=== PATIENT | female | born 1985 | race Hispanic/Latino ===

== ENCOUNTER 2018-09-18 20:55 | Inpatient (IN) | payer BC, MEDICAID ==
[2018-09-18] MEDS ORDERED: XYLOCAINE 2% INFILTRATI ONE (23:16)
[2018-09-18] MEDS ORDERED: ZOFRAN IV PRN (23:16)
[2018-09-18] MEDS ORDERED: BRETHINE SUB-Q PRN (23:16)
[2018-09-18] MEDS ORDERED: BRETHINE IVP PRN (23:16)
[2018-09-18] MEDS ORDERED: CERVIDIL VG ONE (23:16)
[2018-09-18] MEDS ORDERED: MINERAL OIL PO PRN (23:16)
--- NOTE | 2018-09-18 23:24 | History and Physical Report ---
History of Present Illness Date of examination: 09/18/18 (per admitting RN) Date of admission: 09/18/18 20:55 Chief complaint: Scheduled IOL, postdates History of present illness: Menstrual History Regularity: regular Menses every: 28 days Duration: 5 LMP reliability: unknown LMP character: normal test type: urine test Date: 01/23/2018 BC at conception: none Planned ? no EDC Calculations EDC Confirmation: 09/11/2018 Past History : 2 Term Births: 0 Premature Births: 0 Living Children: 0 Para: 0 Mult. Births: 0 Prev : 0 Aborta: 1 Elect. Ab: 1 Past Medical History: Negative Past Medical History Past Surgical History: pins placed in hips - bilaterally, age 14 reomoved pins @ age 16 Past Medical History Surgery (Non-hide and skin colerer): pins placed in hips - bilaterally, age 14 reomoved pins @ age 16 Abnormal PAP: negative GENTRY Exposure: negative Infertility: negative Uterine Anomaly: negative Uterine Surgery (not C/S): negative Other Gynecologic Problems: negative Family Hx: father - of anurism Social Hx: single no ETOH/Drugs/Smoking Infection History Hx of STD: none HIV Risk Eval: no Hepatitis B Risk Eval: low risk Personal hx. of genital herpes: no Partner hx. of genital herpes: no Rash, Viral, or Febrile illness since last LMP? no Varicella/Chicken Pox Status: Previous Disease TB Risk: no Genetic History Congenital Heart Defect: Mom: no Dad: no Terese Disease: Mom: no Dad: no Thalassemia Mom: no Dad: no Neural Tube Defect Mom: no Dad: no Down's Syndrome Mom: no Dad: no Barron-Sachs Mom: no Dad: no Sickle Cell Disease/Trait Mom: no Dad: no Hemophilia Mom: no Dad: no Muscular Dystrophy Mom: no Dad: no Cystic Fibrosis Mom: no Dad: no Oliver Chorea Mom: no Dad: no Mental Retardation Mom: no Dad: no Fragile X Mom: no Dad: no Other Genetic/Chromosomal Disorder Mom: no Dad: no Child w/other defect Mom: no Dad: no Enviromental Exposures Xray Exposure: no Medication, drug, or alcohol use since LMP: no Chemical/Other Exposure: no Exposure to Cat Liter: no Hx of Parvovirus (Fifth Disease): no Occupational Exposure to Children: none Active Medications: None Current Allergies (reviewed today): No known allergies Past History Past Medical History: other (see hpi) Past Surgical History: other (see hpi) 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) Family/Genetic History: other (see hpi) Social history: other (see hpi) - Obstetrical History Expected Date of Delivery: 09/11/18 Actual Gestation: 41 Week(s) 0 Day(s) : 2 Para: 0 Hx # Term Pregnancies: 0 Number of Pregnancies: 0 Number of Living Children: 0 Medications and Allergies Allergies Allergy/AdvReac Type Severity Reaction Status Date / Time No Known Allergies Allergy Unverified 03/11/18 15:57 Home Medications Medication Instructions Recorded Confirmed Last Taken Type Acetaminophen [Tylenol Extra 500 mg PO Q6H PRN #20 tablet 03/11/18 Unknown Rx Strength] Review of Systems All systems: negative - Vital Signs Vital signs: Vital Signs Pulse BP 85 123/77 09/18/18 21:21 09/18/18 21:21 Temp Pulse Resp BP Pulse Ox 90 16 124/71 09/18/18 22:38 09/18/18 22:38 09/18/18 22:38 - Physical Exam Breasts: Positive: normal Cardiovascular: Regular rate, Normal S1, Normal S2 Lungs: Positive: Clear to auscultation, Normal air movement Abdomen: Positive: normal appearance, soft, normal bowel sounds. Negative: distention, tenderness Genitourinary (Female): Positive: normal external genitalia, normal perenium Vulva: both: normal Vagina: Positive: normal moisture. Negative: discharge Cervix: Negative: lesion, discharge Uterus: Positive: normal size, normal contour Adnexa: both: normal Anus/Rectum: Positive: normal perianal skin, heme negative. Negative: rectal mass, hemorrhoids Extremities: Positive: edema (1+ pitting edema bilat LE) Deep Tendon Reflex Grade: Normal +2 - Obstetrical FHR: auscultation normal, category 1 (per admitting RN) Results All other labs normal. Assessment and Plan 33 year old at 41w0d presents for scheduled IOL for postdates. Patient reports feeling well, no complaints. Per admitting RN, category 1 tracing at this time, no contractions, SVE 1/thick/high, vertex. VSSAF. Spoke with patient about induction process, reviewed potential for risks involved with suspected macrosomia such as shoulder dystocia, injuries, instrum ented/operative vaginal , 4th degree perineal laceration, hemorrhage as we discussed in office prior. EFW at 40 weeks was 8#11. Patient has been counseled by physician r/t risks and alternative options for deliver as well. Patient voices understanding and elects to proceed with induction and vaginal . Routine admission orders and cervidil orders input into EMR. Questions encouraged and answered. Patient encouraged to communicate with providers any concerns or desire for changes in POC throughout labor process. Will continue to monitor closely.
[2018-09-18] MEDS ORDERED: PITOCin/NS 20 UNIT/1000ML DRIP 20 UNITS/1,000 ML BAG IV SCH (23:45)
[2018-09-19] MEDS: LACTATED RINGERS 1,000 ML IV SCH ×3 (00:15→12:54)
[2018-09-19 00:18] LABS: Hematocrit 33.1 % (30.3-42.9); Hemoglobin 11.3 gm/dl (10.1-14.3); Mean Corpuscular HGB Conc 34 % (30-34); Mean Corpuscular Volume 86 fl (79-97); Platelet Count 260 K/mm3 (140-440); Red Blood Count 3.84 M/mm3 (3.65-5.03); Red Cell Distribution Width 14.2 % (13.2-15.2)
--- NOTE | 2018-09-19 07:40 | Event Note ---
Date: 09/19/18 Patient in bathroom
--- NOTE | 2018-09-19 07:42 | Progress Note ---
Assessment and Plan Pt returned to bed from toilet c/o ROM and worsening of ctx pain. SVE 3,90,-1 clear fluid Will bolus for epidural and start pitocin. ISE/IUPC placed Re-eval as needed Subjective - Subjective Date of service: 09/19/18 (pt c/o leaking fluid) Patient reports: loss of fluid, movement normal Objective - Vital Signs Vital Signs: Vital Signs - 12hr 09/18/18 09/18/18 21:21 22:38 Pulse Rate 85 90 Respiratory 16 Rate Blood Pressure 123/77 124/71 Blood Pressure 124/71 [Left] - Exam Breasts: deferred Cardiovascular: Regular rate Lungs: Normal air movement Abdomen: Present: normal appearance, soft. Absent: distention, tenderness Uterus: Present: normal FHR: auscultation normal, category 1 Uterine Contraction Monitor Mode: External Cervical Dilatation: 3 (cervidil removed) Cervical Effacement Percentage: 90 (clear fluid) station: -1 Uterine Contraction Pattern: Regular Uterine Tone Measurement Phase: Resting Uterine Contraction Intensity: Moderate Extremities: normal Deep Tendon Reflex Grade: Normal +2 - Labs Labs: Abnormal Labs 09/18/18 21:45 WBC 11.8 H Laboratory Results - last 24 hr 09/18/18 09/18/18 21:45 21:45 WBC 11.8 H RBC 3.84 Hgb 11.3 Hct 33.1 MCV 86 MCH 29 MCHC 34 RDW 14.2 Plt Count 260 Blood Type A POSITIVE Antibody Screen Negative
[2018-09-19] MEDS: PITOCin/NS 30 UNIT/500ML 30 UNITS/500 ML BAG IV SCH ×2 (08:34→14:35)
--- NOTE | 2018-09-19 08:52 | Anesthesia Day of Surgery ---
Anesthesia Day of Surgery - Day of Surgery Patient Examined: Yes Patient H&P Reviewed: Yes Patient is NPO: Yes Beta Blockers: No Cardiac Clearance: No Pulmonary Clearance: No Mike's Test: N/A
--- NOTE | 2018-09-19 08:52 | Anesthesia Consultation ---
Anesthesia Consult and Med Hx Date of service: 09/19/18 - Airway Anesthetic Teeth Evaluation: Chipped ROM Head & Neck: Adequate Mental/Hyoid Distance: Adequate Mallampati Class: Class III Intubation Access Assessment: Good - Pulmonary Exam CTA: Yes - Cardiac Exam Cardiac Exam: RRR - Pre-Operative Health Status ASA Pre-Surgery Classification: ASA3 Proposed Anesthetic Plan: Epidural - Pulmonary Hx Smoking: No Hx Asthma: No Hx Respiratory Symptoms: No SOB: No COPD: No Home Oxygen Therapy: No Hx Pneumonia: No Hx Sleep Apnea: No - Cardiovascular System Hx Hypertension: No Hx Coronary Artery Disease: No Hx Heart Attack/AMI: No Hx Angina: No Hx Percutaneous Transluminal Coronary Angioplasty (PTCA): No Hx Cardia Arrhythmia: No Hx Pacemaker: No Hx Internal Defibrillator: No Hx Valvular Heart Disease: No Hx Heart Murmur: No Hx Peripheral Vascular Disease: No - Central Nervous System Hx Neuromuscular Disorder: No Hx Seizures: No CVA: No Hx Back Pain: Yes Hx Psychiatric Problems: No - Gastrointestinal Hx Ulcer: No Hx Gastroesophageal Reflux Disease: Yes - Endocrine Hx Renal Disease: No Hx End Stage Renal Disease: No Hx Cirrhosis: No Hx Liver Disease: No Hx Insulin Dependent Diabetes: No Hx Non-Insulin Dependent Diabetes: No Hx Thyroid Disease: No Hx Hypothyroidism: No Hx Hyperthyroidism: No - Hematic Hx Anemia: Yes Hx Sickle Cell Disease: No - Other Systems Hx Alcohol Use: No Hx Substance Use: No Hx Cancer: No Hx Obesity: Yes
--- NOTE | 2018-09-19 08:53 | Post Anesthesia Evaluation ---
- Post Anesthesia Evaluation Patient Participated: Yes Airway Patent: Yes Stable Respiratory Function: Yes Nausea/Vomiting: No Temp > 96.8F: Yes Pain Manageable: Yes Adequeate Hydration: Yes Anesthesia Complications: No Block Receding Appropriately: Yes Patient on Ventilator: No
--- NOTE | 2018-09-19 09:13 | Event Note ---
Date: 09/19/18 Discussed possible shoulder dystocia. She was informed at this gestational age it would be difficult to accurately determine adequacy of her pelvis as well as weight. Explained there could be a 1-2# discrepancy in the estimated weight with ultrasound. Complications associated with shoulder dystocia were extensively explained: Permanent or temporary injury to the infant's extremities, permanent brain damage, or . She was also informed she may require an incision on or a laceration may occur involving her vagina and or perineum the median involve the rectum involves the rectum. The incision may be performed order to facilitate delivery of the . This incision/laceration may lead to future complications with painful intercourse, fistula or fecal incontinence or other complications. Risks associated with delivery were discussed: Bleeding that may require blood transfusion and its complications or hysterectomy, infection that may also require hysterectomy and may be fatal, injury to her bowel may require temporary or permanent colostomy, injury to her bladder. She was also informed that once she's had a delivery she may require subsequent delivery with all future pregnancies. Questions were encouraged and answered. Patient voiced understanding and she desires to proceed with YAHIR Cat 1 fht's. She sitting for epidural now.
[2018-09-19] MEDS ORDERED: fentaNYL-BUPIV 2 MCG/ML-0.125% 200 MCG/100 ML BAG EPIDURAL SCH (09:30)
[2018-09-19] MEDS ORDERED: NARCAN 2 MG/2 ML IV PRN (09:30)
--- NOTE | 2018-09-19 09:47 | Progress Note ---
Assessment and Plan - Patient Problems (1) 41 weeks gestation of Current Visit: Yes Status: Acute (2) BMI 35.0-35.9,adult Current Visit: Yes Status: Acute Subjective - Subjective Date of service: 09/19/18 Patient reports: loss of fluid, movement normal Objective - Vital Signs Vital Signs: Vital Signs - 12hr 09/18/18 09/19/18 09/19/18 22:38 07:54 07:56 Temperature 97.8 F Pulse Rate 90 100 H Respiratory 16 Rate Blood Pressure 124/71 134/80 Blood Pressure 124/71 [Left] O2 Sat by Pulse Oximetry 09/19/18 09/19/18 09/19/18 08:29 08:59 09:18 Temperature Pulse Rate 90 87 91 H Respiratory Rate Blood Pressure 138/65 141/79 133/73 Blood Pressure [Left] O2 Sat by Pulse Oximetry 09/19/18 09/19/18 09/19/18 09:20 09:22 09:24 Temperature Pulse Rate 98 H 93 H 93 H Respiratory Rate Blood Pressure 141/77 131/69 120/71 Blood Pressure [Left] O2 Sat by Pulse Oximetry 09/19/18 09/19/18 09/19/18 09:26 09:28 09:32 Temperature Pulse Rate 76 90 88 Respiratory Rate Blood Pressure 109/70 114/65 Blood Pressure [Left] O2 Sat by Pulse 96 95 Oximetry 09/19/18 09/19/18 09/19/18 09:33 09:34 09:36 Temperature Pulse Rate 89 89 81 Respiratory Rate Blood Pressure 127/65 119/61 116/61 Blood Pressure [Left] O2 Sat by Pulse Oximetry 09/19/18 09/19/18 09/19/18 09:37 09:38 09:40 Temperature Pulse Rate 91 H 88 94 H Respiratory Rate Blood Pressure 117/62 118/63 Blood Pressure [Left] O2 Sat by Pulse 98 Oximetry 09/19/18 09:42 Temperature Pulse Rate 85 Respiratory Rate Blood Pressure Blood Pressure [Left] O2 Sat by Pulse 97 Oximetry - Exam Vulva: both: normal Uterus: Present: fundal height above umbilicus FHR: category 1 Cervical Dilatation: 4 Cervical Effacement Percentage: 60 (IUPC was in vagina, it was removed and another one was placed without difficulty) station: -1 Uterine Contraction Frequency (min): 2, Uterine Contraction Pattern: Regular - Labs Labs: Abnormal Labs 09/18/18 21:45 WBC 11.8 H Laboratory Results - last 24 hr 09/18/18 09/18/18 21:45 21:45 WBC 11.8 H RBC 3.84 Hgb 11.3 Hct 33.1 MCV 86 MCH 29 MCHC 34 RDW 14.2 Plt Count 260 Blood Type A POSITIVE Antibody Screen Negative
--- NOTE | 2018-09-19 11:54 | Progress Note ---
Assessment and Plan pt doing well No c/o voiced SVE 8,100,-1 Pit on 6mu Close monitoring Subjective - Subjective Date of service: 09/19/18 (pt happy with epidural) Principal diagnosis: IUP @ 41 weeks IOL Patient reports: loss of fluid, movement normal Objective - Vital Signs Vital Signs: Vital Signs - 12hr 09/19/18 09/19/18 09/19/18 07:54 07:56 08:29 Temperature 97.8 F Pulse Rate 100 H 90 Blood Pressure 134/80 138/65 O2 Sat by Pulse Oximetry 09/19/18 09/19/18 09/19/18 08:59 09:18 09:20 Temperature Pulse Rate 87 91 H 98 H Blood Pressure 141/79 133/73 141/77 O2 Sat by Pulse Oximetry 09/19/18 09/19/18 09/19/18 09:22 09:24 09:26 Temperature Pulse Rate 93 H 93 H 76 Blood Pressure 131/69 120/71 109/70 O2 Sat by Pulse 96 Oximetry 09/19/18 09/19/18 09/19/18 09:28 09:32 09:33 Temperature Pulse Rate 90 88 89 Blood Pressure 114/65 127/65 O2 Sat by Pulse 95 Oximetry 09/19/18 09/19/18 09/19/18 09:34 09:36 09:37 Temperature Pulse Rate 89 81 91 H Blood Pressure 119/61 116/61 O2 Sat by Pulse 98 Oximetry 09/19/18 09/19/18 09/19/18 09:38 09:40 09:42 Temperature Pulse Rate 88 94 H 85 Blood Pressure 117/62 118/63 O2 Sat by Pulse 97 Oximetry 09/19/18 09/19/18 09/19/18 09:47 09:52 09:56 Temperature Pulse Rate 89 87 92 H Blood Pressure 123/72 O2 Sat by Pulse 98 97 Oximetry 09/19/18 09/19/18 09/19/18 09:57 10:02 10:07 Temperature Pulse Rate 106 H 97 H 79 Blood Pressure 160/90 O2 Sat by Pulse 97 97 98 Oximetry 09/19/18 09/19/18 09/19/18 10:11 10:12 10:17 Temperature Pulse Rate 81 81 85 Blood Pressure 126/64 O2 Sat by Pulse 98 98 Oximetry 09/19/18 09/19/18 09/19/18 10:22 10:26 10:27 Temperature Pulse Rate 84 81 83 Blood Pressure 125/65 O2 Sat by Pulse 97 97 Oximetry 09/19/18 09/19/18 09/19/18 10:32 10:37 10:41 Temperature Pulse Rate 83 87 82 Blood Pressure 115/58 O2 Sat by Pulse 97 97 Oximetry 09/19/18 09/19/18 09/19/18 10:42 10:47 10:52 Temperature Pulse Rate 84 87 109 H Blood Pressure O2 Sat by Pulse 97 97 96 Oximetry 09/19/18 09/19/18 09/19/18 10:57 11:02 11:07 Temperature Pulse Rate 93 H 95 H 84 Blood Pressure 131/68 O2 Sat by Pulse 97 97 97 Oximetry 09/19/18 09/19/18 09/19/18 11:11 11:12 11:17 Temperature Pulse Rate 88 98 H 96 H Blood Pressure 134/74 O2 Sat by Pulse 97 97 Oximetry 09/19/18 09/19/18 09/19/18 11:22 11:27 11:32 Temperature Pulse Rate 77 76 109 H Blood Pressure 121/62 O2 Sat by Pulse 97 97 97 Oximetry 09/19/18 09/19/18 09/19/18 11:37 11:41 11:42 Temperature Pulse Rate 92 H 92 H 81 Blood Pressure 111/56 O2 Sat by Pulse 100 100 Oximetry 09/19/18 11:47 Temperature Pulse Rate 91 H Blood Pressure O2 Sat by Pulse 100 Oximetry - Exam Breasts: deferred Cardiovascular: Regular rate Lungs: Normal air movement Abdomen: Present: normal appearance, soft, normal bowel sounds. Absent: distention, tenderness Uterus: Present: normal FHR: auscultation normal, category 1 Uterine Contraction Monitor Mode: Internal Cervical Dilatation: 8 (bloody show) Cervical Effacement Percentage: 100 station: -1 Uterine Contraction Pattern: Regular Uterine Tone Measurement Phase: Resting Uterine Contraction Intensity: Moderate Extremities: normal Deep Tendon Reflex Grade: Normal +2 - Labs Labs: Abnormal Labs 09/18/18 21:45 WBC 11.8 H Laboratory Results - last 24 hr 09/18/18 09/18/18 21:45 21:45 WBC 11.8 H RBC 3.84 Hgb 11.3 Hct 33.1 MCV 86 MCH 29 MCHC 34 RDW 14.2 Plt Count 260 Blood Type A POSITIVE Antibody Screen Negative
--- NOTE | 2018-09-19 13:17 | Progress Note ---
Assessment and Plan pt w/o complaint of ctx pain. FHR 120-130 Just prior to my arrival in room pt had a prolong decel to 80 Pt was vomiting 8,80,-2 with caput. Bloody show continues. Pitocin off. Discussed section with pt due to arrest of dilatation and descent of head. Risks of bleeding, organ damage, need for c/s with future pregnancies. notified of pt situation. Subjective - Subjective Date of service: 09/19/18 (no cervical chg X 2 hours) Principal diagnosis: IUP @ 41 weeks IOL Patient reports: loss of fluid, movement normal Objective - Vital Signs Vital Signs: Vital Signs - 12hr 09/19/18 09/19/18 09/19/18 07:54 07:56 08:29 Temperature 97.8 F Pulse Rate 100 H 90 Blood Pressure 134/80 138/65 O2 Sat by Pulse Oximetry 09/19/18 09/19/18 09/19/18 08:59 09:18 09:20 Temperature Pulse Rate 87 91 H 98 H Blood Pressure 141/79 133/73 141/77 O2 Sat by Pulse Oximetry 09/19/18 09/19/18 09/19/18 09:22 09:24 09:26 Temperature Pulse Rate 93 H 93 H 76 Blood Pressure 131/69 120/71 109/70 O2 Sat by Pulse 96 Oximetry 09/19/18 09/19/18 09/19/18 09:28 09:32 09:33 Temperature Pulse Rate 90 88 89 Blood Pressure 114/65 127/65 O2 Sat by Pulse 95 Oximetry 09/19/18 09/19/18 09/19/18 09:34 09:36 09:37 Temperature Pulse Rate 89 81 91 H Blood Pressure 119/61 116/61 O2 Sat by Pulse 98 Oximetry 09/19/18 09/19/18 09/19/18 09:38 09:40 09:42 Temperature Pulse Rate 88 94 H 85 Blood Pressure 117/62 118/63 O2 Sat by Pulse 97 Oximetry 09/19/18 09/19/18 09/19/18 09:47 09:52 09:56 Temperature Pulse Rate 89 87 92 H Blood Pressure 123/72 O2 Sat by Pulse 98 97 Oximetry 09/19/18 09/19/18 09/19/18 09:57 10:02 10:07 Temperature Pulse Rate 106 H 97 H 79 Blood Pressure 160/90 O2 Sat by Pulse 97 97 98 Oximetry 09/19/18 09/19/18 09/19/18 10:11 10:12 10:17 Temperature Pulse Rate 81 81 85 Blood Pressure 126/64 O2 Sat by Pulse 98 98 Oximetry 09/19/18 09/19/18 09/19/18 10:22 10:26 10:27 Temperature Pulse Rate 84 81 83 Blood Pressure 125/65 O2 Sat by Pulse 97 97 Oximetry 09/19/18 09/19/18 09/19/18 10:32 10:37 10:41 Temperature Pulse Rate 83 87 82 Blood Pressure 115/58 O2 Sat by Pulse 97 97 Oximetry 09/19/18 09/19/18 09/19/18 10:42 10:47 10:52 Temperature Pulse Rate 84 87 109 H Blood Pressure O2 Sat by Pulse 97 97 96 Oximetry 09/19/18 09/19/18 09/19/18 10:57 11:02 11:07 Temperature Pulse Rate 93 H 95 H 84 Blood Pressure 131/68 O2 Sat by Pulse 97 97 97 Oximetry 09/19/18 09/19/18 09/19/18 11:11 11:12 11:17 Temperature Pulse Rate 88 98 H 96 H Blood Pressure 134/74 O2 Sat by Pulse 97 97 Oximetry 09/19/18 09/19/18 09/19/18 11:22 11:27 11:32 Temperature Pulse Rate 77 76 109 H Blood Pressure 121/62 O2 Sat by Pulse 97 97 97 Oximetry 09/19/18 09/19/18 09/19/18 11:37 11:41 11:42 Temperature Pulse Rate 92 H 92 H 81 Blood Pressure 111/56 O2 Sat by Pulse 100 100 Oximetry 09/19/18 09/19/18 09/19/18 11:47 11:52 11:57 Temperature Pulse Rate 91 H 102 H 107 H Blood Pressure O2 Sat by Pulse 100 99 99 Oximetry 09/19/18 09/19/18 09/19/18 12:02 12:07 12:11 Temperature Pulse Rate 100 H 80 83 Blood Pressure 127/63 O2 Sat by Pulse 98 99 Oximetry 09/19/18 09/19/18 09/19/18 12:12 12:17 12:22 Temperature Pulse Rate 115 H 79 86 Blood Pressure O2 Sat by Pulse 99 99 98 Oximetry 09/19/18 09/19/18 09/19/18 12:26 12:27 12:32 Temperature Pulse Rate 88 89 83 Blood Pressure 126/63 125/61 O2 Sat by Pulse 98 98 Oximetry 09/19/18 09/19/18 09/19/18 12:37 12:42 12:47 Temperature Pulse Rate 125 H 103 H 91 H Blood Pressure 148/82 O2 Sat by Pulse 99 98 98 Oximetry 09/19/18 09/19/18 09/19/18 12:52 12:56 12:57 Temperature Pulse Rate 95 H 86 90 Blood Pressure 119/62 O2 Sat by Pulse 96 97 Oximetry 09/19/18 09/19/18 13:02 13:07 Temperature Pulse Rate 100 H 97 H Blood Pressure O2 Sat by Pulse 97 97 Oximetry - Exam Breasts: deferred Cardiovascular: Regular rate Lungs: Normal air movement Abdomen: Present: normal appearance, soft. Absent: distention, tenderness Uterus: Present: normal FHR: auscultation normal, category 2 (deep variable resolved with position chg) Uterine Contraction Monitor Mode: Internal Cervical Dilatation: 8 (caput @ 0) Cervical Effacement Percentage: 80 station: -2 Uterine Contraction Pattern: Regular Uterine Tone Measurement Phase: Resting Uterine Contraction Intensity: Moderate Extremities: normal Deep Tendon Reflex Grade: Normal +2 - Labs Labs: Abnormal Labs 09/18/18 21:45 WBC 11.8 H Laboratory Results - last 24 hr 09/18/18 09/18/18 09/18/18 21:45 21:45 21:45 WBC 11.8 H RBC 3.84 Hgb 11.3 Hct 33.1 MCV 86 MCH 29 MCHC 34 RDW 14.2 Plt Count 260 RPR Nonreactive Blood Type A POSITIVE Antibody Screen Negative
--- NOTE | 2018-09-19 14:19 | Event Note ---
Date: 09/19/18 Patient resting in bed, no complaints. cx: /0; irreg UC (pitocin off by CNM d/t possible c/s). Cat 1 fht's. Options reviewed, including but not limited to, continue YAHIR w/ risks for infection, shoulder dystocia vs c/s delivery with risks for bleeding, infection,injury to bowel/ bladder. Family present during discussion, questions encouraged and answered. Per RN patient desires to have pitoicn restarted to attempt vaginal delivery.
--- NOTE | 2018-09-19 14:33 | Event Note ---
Date: 09/19/18 Again discussed shoulder dystocia and risks of injury, she voiced understanding and desires YAHIR
[2018-09-19] MEDS ORDERED: BICITRA PO ONE (16:44)
[2018-09-19] MEDS ORDERED: REGLAN ONE (16:46)
--- NOTE | 2018-09-19 16:46 | Event Note ---
Date: 09/19/18 No cervical change x 5 hours. Options discussed again , she now desires to proceed with c/s. Consent reviewed and signed
[2018-09-19] MEDS ORDERED: ANCEF/STERILE WATER 2 GM/20 ML 2 GM/20 ML SYRINGE IV NR (17:00)
[2018-09-19] MEDS ORDERED: LACTATED RINGERS 1,000 ML IV SCH (17:00)
[2018-09-19] MEDS ORDERED: PITOCin/NS 20 UNIT/1000ML DRIP 20 UNITS/1,000 ML BAG IV SCH ×2 (17:00→20:20)
[2018-09-19] MEDS ORDERED: MARCAINE 0.5% INFILTRATI ONE (17:12)
[2018-09-19] MEDS ORDERED: SUBLIMAZE ONE ×2 (17:22→18:21)
[2018-09-19] MEDS ORDERED: REGLAN IV ONE (18:00)
[2018-09-19] MEDS ORDERED: PEPCID IV ONE (18:00)
[2018-09-19] MEDS ORDERED: CYTOTEC PR ONE (18:06)
[2018-09-19] MEDS ORDERED: HEMABATE IM ONE (18:06)
[2018-09-19] MEDS ORDERED: METHERGINE IM ONE (18:06)
[2018-09-19] MEDS ORDERED: NEO SYNEPHRINE/NS Syringe(OR USE) IV ONE (18:07)
[2018-09-19] MEDS ORDERED: XYLOCAINE MPF 2% ONE (18:07)
[2018-09-19] MEDS ORDERED: TORADOL ONE (18:31)
[2018-09-19] MEDS ORDERED: VERSED ONE ×2 (18:40→18:41)
--- NOTE | 2018-09-19 19:14 | Operative Report ---
Operative Report Operative Report: Date: 09/19/2018 Preoperative diagnosis: 1. Intrauterine at 41 weeks 2. Body mass index 35 3. Failure to dilate Postoperative diagnosis: 1. Intrauterine at 41 weeks 2. Body mass index 35 3. Failure to dilate Procedure: Low uterine transverse incision for delivery Surgeon: Brittany Juarez MD Case Finishing Machine Adjuster: More Lynn CST Anesthesia: CSE Anesthesiologist: Zev Hollins Estimated blood loss: 600 mL Urine out: 150 mL Findings: Live born male infant. Weight 8 lbs. 4 oz. Apgars 8 at 1 minute and 9 at 5 minutes. Uterus grossly normal, tubes grossly normal, ovaries grossly normal. Procedure: After risk, benefits, complications, consequences and alternatives for this procedure were discussed with patient and consents were reviewed and signed, she was taken to the OR where CSE anesthesia was bolused. She was then placed in the left lateral tilt position, and prepped and draped in the usual sterile fashion. Timeout was performed, and an appropriate level of anesthesia was noted, a Pfannenstiel incision was made and extended to the fascia which was incised and extended in the lateral directions. The overlying fascia was sharply dissected away from the underlying rectus muscles in the superior and inferior directions. The midline was entered bluntly. The vesicouterine fold was incised and with blunt dissection the bladder flap was created. A transverse incision was made in the lower uterine segment and extended in superiolateral direction with finger fractionation. Clear fluid was noted. The was delivered from cephalic position. Mouth and nose were bulb suctioned. Spontaneous cry and excellent tone were noted. Cord was doubly clamped and cut. The was given to /resuscitation team present. The placenta was manually extracted. The uterus was then exteriorized and cleared of any further products of conception or placental tissue. The incision was reapproximated using 0 Vicryl in a running interlocking stitch. Grossly normal uterus, tubes and ovaries were noted. An additional stitch of 0 Vicryl was placed in imbricating fashion. Once hemostasis was noted, the uterus was allowed back into the pelvic cavity. The pelvis was irrigated with warm normal saline. Again hemostasis was noted . Interceed was then placed to prevent adhesions. Then attention was turned to the rectus muscles. The rectus muscles reapproximated using 0 Vicryl in a simple interrupted stitch x 3. Once hemostasis was noted, the fascia was reapproximated using 0 Vicryl running stitch fashion. Once hemostasis was noted skin incision was reapproximated using 4-0 Vicryl on a Jayy needle in a subcuticular manner. Counts were correct 3. Patient tolerated procedure well state recovery room in stable condition.
[2018-09-19] MEDS ORDERED: ZOFRAN IV PRN ×2 (19:25→20:20)
[2018-09-19] MEDS ORDERED: PHENERGAN PR PRN (19:25)
[2018-09-19] MEDS ORDERED: DILAUDID IV PRN ×2 (19:25)
[2018-09-19] MEDS ORDERED: NARCAN 0.4 MG/1 ML IV PRN ×2 (19:25→20:20)
[2018-09-19] MEDS ORDERED: BENADRYL IV PRN (19:25)
[2018-09-19] MEDS ORDERED: PHENERGAN PO PRN (19:25)
[2018-09-19] MEDS ORDERED: SODIUM CHLORIDE FLUSH SYRINGE 10 ML IV SCH ×2 (20:00→20:20)
[2018-09-19] MEDS ORDERED: MILK OF MAGNESIA PO PRN (20:20)
[2018-09-19] MEDS ORDERED: MORPHINE IV PRN ×2 (20:20)
[2018-09-19] MEDS ORDERED: MYLICON PO PRN (20:20)
[2018-09-19] MEDS ORDERED: LANSINOH TP PRN (20:20)
[2018-09-19] MEDS ORDERED: TYLENOL PO PRN (20:20)
[2018-09-19] MEDS ORDERED: TUCKS PAD TP PRN (20:20)
[2018-09-19] MEDS: TORADOL IV SCH (21:09)
[2018-09-19] MEDS ORDERED: D5LR 1,000 ML IV SCH (21:20)
[2018-09-20] MEDS: ANCEF/NS 1 GM/50 ML 1 GM/50 ML BAG IV SCH ×2 (00:15→08:05)
[2018-09-20] MEDS: TORADOL IV SCH ×3 (03:20→17:30)
[2018-09-20] MEDS ORDERED: BOOSTRIX IM ONE (06:00)
[2018-09-20 07:34] LABS: Hematocrit 28.2 % (30.3-42.9); Hemoglobin 9.3 gm/dl (10.1-14.3)
--- NOTE | 2018-09-20 08:17 | Progress Note ---
Assessment and Plan POD1 Patient reports feeling well, denies any complaints or needs at this time. Fundus is firm, ML, U/1. Vaginal bleeding is scant, patient denies any heavy bleeding or clots. Abdominal incision is dressed, clean, dry, intact. Instructed patient to shower today, remove dressing afterwards. Patient reports pain is well controlled with medications. Reports breast feeding is going well, supplementing with formula as needed. Encouraged increase in water intake, continued ambulation and use of IS. VSSAF. Reviewed post delivery labs with angel mo, iron and colace ordered, patient aware. She denies any dizziness or feeling faint with ambulation or position changes. Continue post op pathway. Subjective - Subjective Date of service: 09/20/18 Principal diagnosis: POD 1 s/p primary c/s Interval history: Menstrual History Regularity: regular Menses every: 28 days Duration: 5 LMP reliability: unknown LMP character: normal test type: urine test Date: 01/23/2018 BC at conception: none Planned ? no EDC Calculations EDC Confirmation: 09/11/2018 Past History : 2 Term Births: 0 Premature Births: 0 Living Children: 0 Para: 0 Mult. Births: 0 Prev : 0 Aborta: 1 Elect. 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 of genital herpes: no Partner hx. of genital herpes: no Rash, Viral, or Febrile illness since last LMP? no Varicella/Chicken Pox Status: Previous Disease TB Risk: no Genetic History Congenital Heart Defect: Mom: no Dad: no Terese Disease: Mom: no Dad: no Thalassemia Mom: no Dad: no Neural Tube Defect Mom: no Dad: no Down's Syndrome Mom: no Dad: no Barron-Sachs Mom: no Dad: no Sickle Cell Disease/Trait Mom: no Dad: no Hemophilia Mom: no Dad: no Muscular Dystrophy Mom: no Dad: no Cystic Fibrosis Mom: no Dad: no Fenton Chorea Mom: no Dad: no Mental Retardation Mom: no Dad: no Fragile X Mom: no Dad: no Other Genetic/Chromosomal Disorder Mom: no Dad: no Child w/other defect Mom: no Dad: no Enviromental Exposures Xray Exposure: no Medication, drug, or alcohol use since LMP: no Chemical/Other Exposure: no Exposure to Cat Liter: no Hx of Parvovirus (Fifth Disease): no Occupational Exposure to Children: none Active Medications: None Current Allergies (reviewed today): No known allergies Patient reports: appetite normal, voiding normally, pain well controlled, flatus, ambulating normally [place]: doing well Objective - Vital Signs Latest vital signs: Vital Signs Temp Pulse Resp BP Pulse Ox 09/20/18 05:28 97.8 F 81 20 111/69 95 09/19/18 20:40 98.2 F 87 20 117/76 95 09/19/18 20:14 98.7 F 88 16 116/60 95 09/19/18 19:50 84 14 116/63 96 09/19/18 19:35 89 14 111/56 96 09/19/18 19:19 87 15 109/55 95 09/19/18 19:05 79 15 113/59 95 09/19/18 19:00 79 15 113/59 95 09/19/18 18:55 98.6 F 93 H 16 103/56 09/19/18 17:44 95 H 97 09/19/18 17:40 108 H 133/71 09/19/18 17:39 106 H 97 09/19/18 17:02 107 H 99 09/19/18 16:57 114 H 99 09/19/18 16:52 91 H 98 09/19/18 16:47 100 H 99 09/19/18 16:42 112 H 97 09/19/18 16:41 92 H 125/77 09/19/18 16:37 99 H 98 09/19/18 16:32 83 98 09/19/18 16:27 85 125/71 98 09/19/18 16:22 91 H 98 09/19/18 16:17 89 98 09/19/18 16:12 80 123/67 97 09/19/18 16:07 76 97 05 16:02 98 H 98 05 15:57 76 98 05 15:56 83 125/67 05 15:52 82 97 05 15:47 87 97 05 15:42 83 110/65 97 05 15:37 92 H 97 05 15:32 99 H 96 05 15:27 94 H 97 05 15:26 96 H 111/59 05 15:22 93 H 97 05 15:17 99 H 97 05 15:12 89 114/55 95 05 15:07 92 H 97 05 15:02 95 H 96 05 14:57 89 97 09/19/18 14:56 95 H 101/52 05 14:52 88 97 05 14:47 92 H 97 05 14:42 101 H 98 05 14:41 110 H 115/57 94 05 14:37 92 H 96 09/19/18 14:32 94 H 97 05 14:27 99 H 97 05 14:26 114 H 117/62 05 14:22 146 H 96 09/19/18 14:17 88 97 09/19/18 14:12 93 H 98 09/19/18 14:11 96 H 118/63 05 14:07 103 H 98 05 14:02 93 H 97 05 13:57 90 117/61 96 05 13:52 92 H 97 09/19/18 13:50 97.9 F 05 13:47 102 H 98 05 13:42 89 118/64 98 05 13:37 89 98 05 13:32 79 98 05 13:27 84 125/72 97 05 13:22 92 H 97 05 13:17 81 97 05 13:12 86 98 05 13:11 86 121/67 05 13:07 97 H 97 05 13:02 100 H 97 05/ 12:57 90 97 05 12:56 86 119/62 05 12:52 95 H 96 05 12:47 91 H 98 05 12:42 103 H 148/82 98 05 12:37 125 H 99 05 12:32 83 98 05 12:27 89 125/61 98 0519 12:26 88 126/63 05/ 12:22 86 98 05 12:17 79 99 05 12:12 115 H 99 05 12:11 83 127/63 05/ 12:07 80 99 05 12:02 100 H 98 05 11:57 107 H 99 05 11:52 102 H 99 05 11:47 91 H 100 05 11:42 81 100 05 11:41 92 H 111/56 05 11:37 92 H 100 05 11:32 109 H 97 05 11:27 76 121/62 97 05/ 11:22 77 97 05 11:17 96 H 97 05 11:12 98 H 97 05 11:11 88 134/74 05 11:07 84 97 05 11:02 95 H 97 05 10:57 93 H 131/68 97 05 10:52 109 H 96 05 10:47 87 97 05/19 10:42 84 97 05/ 10:41 82 115/58 05/ 10:37 87 97 05/ 10:32 83 97 05/ 10:27 83 97 05/19 10:26 81 125/65 05//19 10:22 84 97 05//19 10:17 85 98 05// 10:12 81 98 05//19 10:11 81 126/64 05// 10:07 79 98 05 10:02 97 H 160/90 97 05// 09:57 106 H 97 09/19/18 09:56 92 H 123/72 09/19/18 09:52 87 97 09/19/18 09:47 89 98 09/19/18 09:42 85 97 09/19/18 09:40 94 H 118/63 09/19/18 09:38 88 117/62 09/19/18 09:37 91 H 98 09/19/18 09:36 81 116/61 09/19/18 09:34 89 119/61 09/19/18 09:33 89 127/65 09/19/18 09:32 88 95 09/19/18 09:28 90 114/65 09/19/18 09:26 76 109/70 96 09/19/18 09:24 93 H 120/71 09/19/18 09:22 93 H 131/69 09/19/18 09:20 98 H 141/77 09/19/18 09:18 91 H 133/73 09/19/18 08:59 87 141/79 09/19/18 08:29 90 138/65 Intake and Output 09/19/18 09/20/18 09/20/18 23:59 07:59 15:59 Intake Total 1700 240 Output Total 950 1000 Balance 750 -760 Intake: IV 1700 Oral 240 Output: Urine 950 1000 Indwelling Catheter 600 1000 Other: Total, Intake Amount 240 Total, Output Amount 600 1000 Estimated Blood Loss 600 - Exam Breasts: Present: normal Cardiovascular: Present: Regular rate, Normal S1 Lungs: Present: Clear to auscultation Abdomen: Present: normal appearance, soft, normal bowel sounds Vulva: both: normal Uterus: Present: normal, firm Extremities: Present: normal Deep Tendon Reflex Grade: Normal +2 Incision: Present: dressed (C/D/I) - Labs Labs: Abnormal lab results 09/20/18 Range/Units 06:50 Hgb 9.3 L (10.1-14.3) gm/dl Hct 28.2 L (30.3-42.9) %
[2018-09-20] MEDS: COLACE PO SCH ×2 (10:44→21:17)
[2018-09-20] MEDS: FEOSOL PO SCH ×2 (10:44→21:16)
[2018-09-20] MEDS ORDERED: TORADOL IV SCH (17:30)
[2018-09-20] MEDS ORDERED: PERCOCET 5/325 PO PRN (18:51)
[2018-09-20] MEDS: IBUPROFEN PO PRN (21:17)
[2018-09-21] MEDS: IBUPROFEN PO PRN ×4 (03:20→23:39)
[2018-09-21] MEDS ORDERED: BOOSTRIX IM ONE (06:00)
[2018-09-21] MEDS: COLACE PO SCH ×2 (09:36→21:34)
[2018-09-21] MEDS: FEOSOL PO SCH ×2 (09:36→21:34)
--- NOTE | 2018-09-21 15:14 | Discharge Summary ---
Providers - Providers Date of Admission: 09/18/18 20:55 Date of discharge: 09/21/18 Attending physician: CAM KELLOGG 09/19/18 20:20 Consult to Psychotherapist [CONS] Routine Reason For Exam: Primary care physician: CAM KELLOGG Hospitalization Reason for admission: other (IOL) Delivery: Procedure: section Procedure details: see op note Incision: normal, dry, intact (steristrips in place and open to air) complications: none Discharge diagnosis: IUP at term delivered [place] baby: male Hospital course: pt admitted for IOL and had c/s due to failure to progress. Post op/pp course has note been complicated. Pt desires d/c home today on POD#2. Pt will f/u in the office in one week for post op incision check and within 2 wks for circumcision for the baby. Condition at discharge: Good Disposition: DC-01 TO HOME OR SELFCARE - Discharge Diagnoses (1) S/P primary low transverse Status: Acute Plan - Discharge Medications Prescriptions: Docusate Sodium [Colace] 100 mg PO BID PRN #60 capsule PRN Reason: Constipation Lidocain2.5%/Prilocai2.5% [Emla] 5 gm TP ONCE #1 tube Ferrous Sulfate [Feosol 325 MG tab] 325 mg PO BID #60 tablet Ibuprofen [Motrin 800 MG tab] 800 mg PO TID PRN #30 tablet PRN Reason: Pain oxyCODONE /ACETAMINOPHEN [Percocet 5/325 mg] 1 - 2 tab PO Q4HR PRN #20 tablet PRN Reason: Pain - Provider Discharge Summary Activity: routine, no sex for 6 weeks, no heavy lifting 4 weeks Diet: routine Instructions: routine Additional instructions: [] Smoking cessation referral if applicable(refer to patient education folder for contact #) [] Refer to [facility] Booklet Call your doctor immediately for: * Fever > 100.5 * Heavy vaginal bleeding ( >1 pad per hour) * Severe persistent headache * Shortness of breath * Reddened, hot, painful area to leg or breast * Drainage or odor from incision. * Keep incision clean and dry at all times and follow doctor's instructions regarding bathing/showering - Follow up plan Follow up: CAM KELLOGG MD [Primary Care Provider] - 7 Days
[2018-09-22] MEDS: IBUPROFEN PO PRN (09:18)
[2018-09-22] MEDS: FEOSOL PO SCH (09:20)
[2018-09-22] MEDS: COLACE PO SCH (09:20)
[2018-09-22 09:32] VITALS: BP 104/65
== END 2018-09-22 11:12 | disposition home or self-care (01) | DRG 787 ==
LOC: LD 20:55 → APU 09-19 18:01 → OB 09-19 20:29
PROVIDERS: ADMIT Obstetrics & Gynecology; ATTEND Obstetrics & Gynecology
PROC: 10D00Z1 Extraction of Products of Conception, Low, Open Approach (ICD-10-PCS; principal; 2018-09-19)
PROC: 10H07YZ Insertion of Other Device into Products of Conception, Via Natural or Artificial Opening (ICD-10-PCS; 2018-09-19)
DX: O99.62 Diseases of the digestive system complicating childbirth (principal); D62 Acute posthemorrhagic anemia; O48.0 Post-term pregnancy; O62.0 Primary inadequate contractions; O61.9 Failed induction of labor, unspecified; K21.9 Gastro-esophageal reflux disease without esophagitis; O99.214 Obesity complicating childbirth; E66.9 Obesity, unspecified; Z3A.41 41 weeks gestation of pregnancy; Z37.0 Single live birth; O90.81 Anemia of the puerperium
CPT/HCPCS: 36415; 85014; 85018; 85027; 86592; 86850; 86900; 86901; 90471; 90715; G0378; A6250; C1765; J0690; J1885; J2210; J2250; J2270; J2370; J2405; J2590; J2765; J3010; J7120; J7121